=== PATIENT | male | born 1960 | race Caucasian/White ===

== ENCOUNTER 2024-05-28 10:18 | Emergency (ER) | payer OTHER, SELFPAY ==
[2024-05-28 10:20] VITALS: BP 112/65; PULSE 82; O2SAT 99
--- NOTE | 2024-05-28 10:31 | ED_ITS ---
HPI - Nausea/Vomiting/Diarrhea General Chief complaint: Nausea/Vomiting/Diarrhea Stated complaint: VOMITING Time Seen by Provider: 05/28/24 10:24 Source: patient Mode of arrival: ambulance Limitations: no limitations History of Present Illness HPI Narrative: The patient woke up this morning almost at 5 AM with nausea and vomiting and diarrhea, he went to sleep last night after eating a frozen pizza with no diffic ulty or any other complaints Patient is denying abdominal pain he received Reglan by the EMS and feeling better upon arrival Related Data Previous Rx's ?Medication ?Instructions ?Recorded ondansetron 4 mg disintegrating 4 mg PO Q8H PRN nausea and 05/28/24 tablet vomiting 48 hours #7 tabs Allergies Allergy/AdvReac Type Severity Reaction Status Date / Time NSAIDS (Non-Steroidal AdvReac Severe Anaphylaxis Verified 05/28/24 10:20 Anti-Inflamma Review of Systems ROS Status of ROS 10 or more systems reviewed and unremark able except as noted in history and below PFSH PFSH Social History Little interest or pleasure in doing things: not at all Feeling down, depressed, or hopeless: not at all Exam Narrative Exam Narrative: Nurses notes and vital signs reviewed and patient is not hypoxic. General: Well-appearing and in no apparent distress. Skin: Warm, dry, no pallor noted. No rash. Head: Normocephalic, atraumatic. Neck: Supple, non-tender. Eye: Pupils are equal, round and EOMI. No scleral icterus. Ears, Nose, Mouth, and Throat: TM are clear, no nasal mucosal hypertrophy. Oral mucosa is moist, no posterior oropharynx erythema, uvula is mid-line Cardiovascular: Regular Rate and Rhythm without murmur, gallop or rub. Respiratory: No accessory muscle use or respiratory distress. Lungs are clear to auscultation, no wheezing, rales or rhonchi Chest Wall: no tenderness Back: No midline thoracic or lumbar vertebral tenderness. No CVA tenderness Musculoskeletal: normal ROM, no calf or popliteal tenderness, no lower extremity edema/swelling GI: Abdomen is soft, non-distended. Normal bowel sounds. No masses appreciated. No tenderness to palpation. No rebound, guarding, or rigidity noted. Neurological: A&O x4. No cranial nerve dysfunction observed. No truncal ataxia. Moves all extremities. Sensation intact. Psychiatric: Cooperative and interactive. Normal mood and affect. Constitutional Vital Signs, click to edit/add: Last Vital Signs Temp 97.5 F L 05/28/24 11:19 Pulse 82 05/28/24 10:20 Resp 20 05/28/24 10:20 BP 112/65 05/28/24 10:20 Pulse Ox 99 05/28/24 10:20 O2 Del Method Room Air 05/28/24 10:20 Course Vital Signs Vital signs: Vital Signs Pulse Rate 82 05/28/24 10:20 Respiratory Rate 20 05/28/24 10:20 Blood Pressure 112/65 05/28/24 10:20 Pulse Oximetry 99 05/28/24 10:20 Oxygen Delivery Method Room Air 05/28/24 10:20 Temperature 97.5 F L 05/28/24 11:19 Pulse Rate 82 05/28/24 10:20 Respiratory Rate 20 05/28/24 10:20 Blood Pressure 112/65 05/28/24 10:20 Pulse Oximetry 99 05/28/24 10:20 Oxygen Delivery Method Room Air 05/28/24 10:20 MDM - Nausea/Vomiting/Diarrhea MDM Narrative Medical decision making narrative: CBC shows mild leukocytosis mostly reactive at the patient have no tenderness on abdominal exam The patient chemistry shows a mild acute kidney injury He was provided with IV fluid and in addition to the Reglan that he was provided by the EMS after which she was feeling much better , the patient was discharged with Zofran to continue supportive care and follow-up with his primary care for further evaluation The patient is to follow up with primary care physician in next 2-3 days or to return to the emergency department should any of the signs or symptoms worsen or new symptoms develop. The patient agrees with the following Diagnosis and Treatment plan and the patient will be discharged home. Lab Data Labs: Lab Results 05/28/24 Range/Units 11:03 WBC 14.2 H (4.0-11.0) 10^3/uL RBC 5.50 (4.70-6.10) 10^6/uL Hgb 16.2 (14.0-18.0) g/dL Hct 48.2 (42.0-54.0) % MCV 87.6 (80.0-94.0) fL MCH 29.5 (25.9-34.0) pg MCHC 33.6 (29.9-35.2) g/dL RDW 13.2 (11.0-15.0) % Plt Count 191 (150-450) 10^3/uL MPV 9.2 L (9.5-13.5) fL Seg Neuts % (Manual) 92.0 H (43.0-75.0) Lymphocytes % (Manual) 6.0 L (20.5-60.0) % Monocytes % (Manual) 2.0 (1.7-12.0) % Eosinophils % (Manual) 0.0 L (0.9-7.0) % Basophils % (Manual) 0.0 L (0.2-2.0) % Neutrophils # (Manual) 13.06 H (1.4-6.5) 10^3/uL Lymphocytes # (Manual) 0.85 L (1.20-3.80) 10^3/uL Monocytes # (Manual) 0.28 L (0.30-0.80) 10^3/uL Eosinophils # (Manual) 0.00 (0.00-0.70) 10^3/uL Basophils # (Manual) 0.00 (0.00-0.10) 10^3/uL Sodium 140 (136-145) mmol/L Potassium 4.2 (3.5-5.1) mmol/L Chloride 105 (98-107) mmol/L Carbon Dioxide 23.3 (21.0-32.0) mmol/L Anion Gap 15.9 BUN 27.0 H (7.0-18.0) mg/dL Creatinine 1.37 H (0.70-1.30) mg/dL Est GFR ( Amer) >60 (>=60 mL/min/1.73m^2) Est GFR (Non-Af Amer) 52 L (>=60 mL/min/1.73m^2) BUN/Creatinine Ratio 19.7 Glucose 161 H (74-106) mg/dL Calcium 9.4 (8.5-10.1) mg/dL Total Bilirubin 1.3 H (0.2-1.0) mg/dL AST 17 (15-37) U/L ALT 25 (16-63) U/L Alkaline Phosphatase 82 (46-116) U/L Total Protein 7.8 (6.4-8.2) g/dL Albumin 4.2 (3.4-5.0) g/dL Globulin 3.6 g/dL Albumin/Globulin Ratio 1.2 Discharge Plan Discharge Chief Complaint: Nausea/Vomiting/Diarrhea Clinical Impression: Gastroenteritis, RIGOBERTO (acute kidney injury) Patient Disposition: Home, Self-Care Time of Disposition Decision: 10:27 Condition: Good Prescriptions / Home Meds: New ondansetron 4 mg tablet,disintegrating 4 mg PO Q8H PRN (Reason: nausea and vomiting) 2 Days Qty: 7 0RF Print Language: Belarusian Instructions: Acute Kidney Injury (DC), Gastroenteritis (DC) Referrals: MILAN ARROYO [Primary Care Provider] - 1 week Discharge Date/Time: 05/28/24 13:16
[2024-05-28] MEDS: 0.9 % SODIUM CHLORIDE 1,000 ML 500 ML IV (10:32)
[2024-05-28 11:11] LABS: Hematocrit 48.2 % (42.0-54.0); Hemoglobin 16.2 g/dL (14.0-18.0); Mean Corpuscular HGB Conc 33.6 g/dL (29.9-35.2); Mean Corpuscular Hemoglobin 29.5 pg (25.9-34.0); Mean Corpuscular Volume 87.6 fL (80.0-94.0); Mean Platelet Volume 9.2 fL (9.5-13.5); Platelet Count 191 10^3/uL (150-450); Red Cell Distribution Width 13.2 % (11.0-15.0); White Blood Count 14.2 10^3/uL (4.0-11.0)
[2024-05-28 11:19] VITALS: TEMP 36.4
[2024-05-28 11:25] LABS: Alanine Aminotransferase 25 U/L (16-63); Albumin Globulin Ratio 1.2; Albumin Level 4.2 g/dL (3.4-5.0); Alkaline Phosphatase 82 U/L (46-116); Anion Gap 15.9; Aspartate Amino Transferase 17 U/L (15-37); BUN Creatinine Ratio 19.7; Bilirubin Total 1.3 mg/dL (0.2-1.0); Calcium 9.4 mg/dL (8.5-10.1); Carbon Dioxide 23.3 mmol/L (21.0-32.0); Chloride 105 mmol/L (98-107); Estimated GFR (African America >60 (>=60 mL/min/1.73m^2); Estimated GFR (Non-African Ame 52 (>=60 mL/min/1.73m^2); Globulin 3.6 g/dL; Glucose 161 mg/dL (74-106); Potassium 4.2 mmol/L (3.5-5.1); Sodium 140 mmol/L (136-145); Total Protein 7.8 g/dL (6.4-8.2)
[2024-05-28 11:48] LABS: Lymphocytes Absolute Manual 0.85 10^3/uL (1.20-3.80); Monocytes Absolute Manual 0.28 10^3/uL (0.30-0.80); Segmented Neut Absolute Manual 13.06 10^3/uL (1.4-6.5)
== END 2024-05-28 13:16 | disposition home or self-care (01) ==
PROVIDERS: Emergency Provider Emergency Medicine; PCP Family Medicine
DX: K52.9 Noninfective gastroenteritis and colitis, unspecified (principal); N17.9 Acute kidney failure, unspecified
CPT/HCPCS: 36415; 80053; 85007; 85027; 96360; 96361; 99284